=== PATIENT | female | born 1935 | race Caucasian/White ===

== ENCOUNTER 2025-10-03 14:29 | Outpatient (CLI) | payer MEDICARE | END 2025-10-03 14:30 | disposition home or self-care (01) | LOC: CSHRAD 14:29 | PROVIDERS: ATTEND Internal Medicine Endocrinology, Diabetes & Metabolism | DX: M25.551 Pain in right hip (principal) ==

== ENCOUNTER 2025-10-31 12:48 | Outpatient (CLI) | payer OTHER | END 2025-10-31 12:49 | disposition home or self-care (01) | LOC: CSHMRI 12:48 | DX: M25.551 Pain in right hip (principal); S76.311A Strain of muscle, fascia and tendon of the posterior muscle group at thigh level, right thigh, initial encounter; M25.451 Effusion, right hip; S73.101A Unspecified sprain of right hip, initial encounter; M16.11 Unilateral primary osteoarthritis, right hip; M25.851 Other specified joint disorders, right hip; N94.89 Other specified conditions associated with female genital organs and menstrual cycle ==